=== PATIENT | male | born 2000 | race Caucasian/White ===

== ENCOUNTER 2019-03-31 21:09 | Emergency (ER) | payer OTHER ==
[~2019-03-31] VITALS: Ht 188 cm; Wt 131.8 kg
[2019-03-31 21:14] VITALS: BP 180/99; TEMP 98.4
[2019-03-31 22:07] VITALS: PULSE 91
== END 2019-03-31 22:06 | disposition home or self-care (01) ==
LOC: COL.ER 21:09
DX: S00.502A Unspecified superficial injury of oral cavity, initial encounter (principal); W22.8XXA Striking against or struck by other objects, initial encounter; Y93.67 Activity, basketball